=== PATIENT | female | born 1945 | race Caucasian/White ===

== ENCOUNTER → 2017-03-02 08:04 | Outpatient (CLI) | payer MEDICARE, OTHER ==
[2014-08-15 09:51] VITALS: BMI 24.4
[~2017-03-02 08:04] MED LIST: INDERAL10 MG PO; PAXIL20 MG PO; PRILOSEC20 MG PO; RYTHMOL225 MG PO; VYTORIN 10-40 M1 TAB PO
== END | disposition home or self-care (01) ==
LOC: D.US 08:04
DX: K76.89 Other specified diseases of liver (principal)

== ENCOUNTER 2017-09-29 05:00 | Day surgery (SDC) | payer MEDICARE, OTHER ==
[2017-09-28 14:48] LABS: HEMATOCRIT 42.5 % (36.0-48.0); HEMOGLOBIN 13.9 g/dL (12-16); MCH 29.3 pg (26.0-34.0); MCHC 32.7 g/dL (31.0-37.0); MCV 89.5 fL (80.0-100.0); MEAN PLATELET VOLUME 10.3 fL (7.4-10.4); RBC 4.75 10x6/uL (4.00-5.40); RDW 12.9 % (11.5-14.5); WBC 5.3 10x3/uL (4.8-10.8)
[~2017-09-29] VITALS: Ht 177.8 cm; Wt 83.9 kg
--- NOTE | ~2017-09-29 | OP ---
PATIENT NAME: BERTO MCKEON MEDICAL RECORD: [id number] :47 LOCATION:D.OPS ADMISSION DATE: SURGEON: JEFFREY TORRES DPM DATE OF OPERATION: 09/29/2017 PREOPERATIVE DIAGNOSES: 1. Arthritis, right ankle. 2. Spur and loose fragment, medial tibia at the medial malleolus. 3. HAV, right foot. POSTOPERATIVE DIAGNOSES: 1. Arthritis, right ankle. 2. Spur and loose fragment, medial tibia at the medial malleolus. 3. HAV, right foot. PROCEDURES: 1. Right ankle arthroscopy. 2. Right medial malleolus spur removal and fragment removal. 3. Right Jeff bunionectomy. ANESTHESIA: General with local infiltrate utilizing lidocaine and Marcaine plain, 20 cc total around the ankle as well as the first ray of the right foot. HEMOSTASIS: Right thigh tourniquet at 350 mmHg. PREOPERATIVE DETAILS: The patient was taken to the OR and placed on the operating table in a supine position. This was followed by induction of general anesthesia and infiltration of local anesthetic. The right extremity was then prepped and draped in the usual aseptic technique followed by exsanguination and inflation of tourniquet. DESCRIPTION OF PROCEDURE: Procedure #1: Right ankle arthroscopy: Two small stab incisions were made over the anterior medial and anterior lateral shoulder of the right ankle. The incision was deepened down bluntly with a hemostat and the joint capsule was punctured with a blunt trocar. Trocar and cannula were then introduced in the medial portal. Camera was then introduced. Initial inspection of the joint showed some thinning of the cartilage as well as some anterior distal tibial spurring. The synovial shaver was introduced in the lateral portal. At this time, the synovial shaver was used to provide extensive debridement of the chondromalacia and spurring on the anterior distal tibia as well as the synovitis of the joint capsule. The portals were switched and repeated. Continued inspection showed intact intracapsular ligaments. The camera and synovial shaver were removed. The incisions were closed with 4-0 Rapide in a simple interrupted technique. Procedure #2: Spur removal, medial aspect of the distal tibia at the medial malleolus of the right ankle: A 15-blade was used to create a linear incision from proximal to distal overlying the medial malleolus. The incision was deepened down through subcutaneous tissue. Dissection was carried down through the periosteum. The periosteum was freed from the medial malleolus. There was noted to be a loose fragment in this area, which was excised. There was some spurring as well, which was smoothed with bone rasp. The area was flushed. The deep tissue was repaired with 2-0 Vicryl, the subcutaneous tissue with 4-0 Rapide, and the skin was closed with 4-0 Rapide in a subcuticular technique. OPERATIVE REPORT [id number] BERTO MCKEON Procedure #3: Jeff bunionectomy, right foot: A 15 blade was used to create a 4-cm linear incision over the dorsal aspect of the first ray extending to the base of proximal phalanx of the hallux. The incision was deepened down through subcutaneous tissue being sure to avoid all vital structures. Dissection was carried down to the first MPJ where an inverted L capsulotomy was performed. The medial capsular flap was reflected and the head of the first metatarsal was delivered. A sagittal saw was used to resect the medial eminence. Attention was then directed to the first interspace where a lateral release was performed. Attention then redirected to the medial aspect of the head of first metatarsal. A sagittal saw was used to create a V-osteotomy through and through. The capital fragment was translocated laterally and fixated with a 0.062 inch K-wire. The pin was cut. The medial redundant shelf was resected with sagittal saw. The wound was flushed. The joint capsule was repaired with 2-0 Vicryl, the subcutaneous tissue with 4-0 Rapide, and the skin was closed with 4-0 Rapide in a subcuticular technique followed by Dermabond. Dermabond was also placed on the other wounds as described above. Adaptic, 4 x 4, and Conform were used to dress the wound followed by Coban. Tourniquet was deflated. POSTOPERATIVE DETAILS: The patient tolerated the procedure well and left the OR with vital signs stable and vascular status at preoperative levels. The patient was transported to recovery per anesthesia in stable condition. TRANSINT:[id number] Voice Confirmation ID: [id number] DOCUMENT ID: [id number] JEFFREY TORRES DPM at 1252 CC: [id number] DICTATION DATE: 09/29/17 0804 OUTDOOR POWER EQUIPMENT MECHANIC: 09/29/17 [facility] 09/29/17 [facility] [address] [place], [facility]
[2017-09-29 06:09] VITALS: BP 124/62; Ht 177.8 cm; Wt 83.9 kg
== END 2017-09-29 10:00 | disposition home or self-care (01) ==
LOC: D.OPS 05:00 → D.PAN 07:00 → D.OPS 10:00
PROVIDERS: Anesthesiology
DX: M13.871 Other specified arthritis, right ankle and foot (principal); M77.51 Other enthesopathy of right foot and ankle; M20.11 Hallux valgus (acquired), right foot; M65.871 Other synovitis and tenosynovitis, right ankle and foot; Z01.812 Encounter for preprocedural laboratory examination

== ENCOUNTER 2018-09-20 19:27 | Emergency (ER) | payer MEDICARE ==
[~2018-09-20] VITALS: Ht 177.8 cm; Wt 81.8 kg
[2018-09-20 19:44] VITALS: Ht 177.8 cm; Wt 81.8 kg
[2018-09-20] MEDS ORDERED: TOBRADEX EYE DRO5 ML RIGHT EYE (21:36)
[2018-09-21 00:43] VITALS: BP 128/80
== END 2018-09-20 22:05 | disposition home or self-care (01) ==
LOC: D.ER 19:27
DX: H10.31 Unspecified acute conjunctivitis, right eye (principal)

== ENCOUNTER → 2018-12-07 12:56 | Outpatient (CLI) | payer MEDICARE ==
[2018-09-20 19:44] VITALS: BMI 25.8
[~2018-12-07 12:56] MED LIST changes: +TOBRADEX EYE DRO5 ML RIGHT EYE
--- NOTE | 2018-12-14 14:31 | EC ---
PATIENT:AUBRIE MCKEON DATE OF SERVICE: 12/07/18 SEX: F MEDICAL RECORD: [id number] DATE OF : 47 LOCATION:D[facility] AGE OF PATIENT: 73 ADMISSION DATE: 12/07/18 REFERRING PHYSICIAN: INTERPRETING PHYSICIAN: MANUEL WARE MD ECHOCARDIOGRAM REPORT ECHO CHARGES 4 ECHO COMPLETE Date: 12/07/18 CLINICAL DIAGNOSIS: MR H/O HTN/A-FIB ECHOCARDIOGRAPHIC MEASUREMENTS (adult normal given) AC root (d.<3.7cm) 3.0 cm LV Septum d (<1.2 cm> 1.3 cm Valve Excursion 1.7 cm LV Septum (systole) 1.9 cm Left Atria (s.<4.0cm> 4.2 cm LVPW d(<1.2cm) 1.4 cm RV (d.<2.3cm) 3.0 cm LVPW (sytole) 1.7 cm LV diastole(<5.6CM) 5.6 cm MV E-F(>70mm/sec) cm LV systole 3.5 cm LVOT Diameter 2.0 cm MV exc.(>10mm) cm Est.ejection fraction (50-75%) % DOPPLER: LVIT cm/sec A 40.0 cm/sec E 45.0 cm/sec LA cm/sec RVSP 33.0 mmHg LVOT 89.0 cm/sec AOP1/2T m/s Asc. Ao 134 cm/sec RVOT 55.0 cm/sec RA cm/sec PA 73.0 cm/sec AV Gradient Peak 7.2 mmHg AV Mean 3.7 mmHg AV Area 1.9 cm MV Gradient Peak 3.2 mmHg MV Mean 1.0 mmHg MV Area cm COMMENTS: OP - HC Customer Insight Analyst: Enoch PEÑALOZA SABETHA Paint Mixer: 1 Dr. Ware TAPE# PACS Pericardial Effusion N DATE OF SERVICE: 12/07/2018 FINDINGS: 1. Left ventricular chamber size is in the upper limits of normal, left systolic function is normal at 55%. 2. The left atrium is mildly dilated at 4.2 cm. Right atrium and right ventricular chamber sizes are within normal limits. 3. Valvular structures have normal structure and motion. 4. Doppler interrogation reveals mild mitral regurgitation, mild tricuspid regurgitation, no other valvular insufficiency or stenosis and pulmonary ECHOCARDIOGRAM REPORT [id number] MIKE,AUBRIE systolic pressure is estimated 33 mmHg. 5. No evidence of pericardial effusion or left ventricular thrombus. TRANSINT:[id number] Voice Confirmation ID: [id number] DOCUMENT ID: [id number] MANUEL WARE MD at 1431 CC: [id number] DICTATION DATE: 12/07/18 1551 CEMENT CONTRACTOR: 12/07/18 2300 DEP CLI 12/07/18 [place] [id number] [place] [id number]
== END | disposition home or self-care (01) ==
LOC: D.HCCARDIO 12:56
PROVIDERS: ATTEND Internal Medicine Interventional Cardiology
DX: I34.0 Nonrheumatic mitral (valve) insufficiency (principal)